=== PATIENT | male | born 1985 | race Caucasian/White ===

== ENCOUNTER 2021-02-01 11:47 | Emergency (ER) | payer OTHER ==
--- NOTE | 2021-02-01 12:32 | EDM.PDOC ---
ED HPI GENERAL MEDICAL PROBLEM - General Chief Complaint: Upper Extremity Injury/Pain Stated Complaint: LEFT THUMB INJURY Time Seen by Provider: 02/01/21 12:09 Source of Information: Reports: Patient History Limitations: Reports: No Limitations - History of Present Illness INITIAL COMMENTS - FREE TEXT/NARRATIVE: 35 yo male presents to the clinic with crush injury to the tip of his left thumb. His finger was caught between log splitter and log. nail intact but has lifted at distal cuticle. blood under nail and at distal cuticle laceration. up to date on tetanus. generally healthy. - Related Data Allergies Allergy/AdvReac Type Severity Reaction Status Date / Time Penicillins Allergy Hives Verified 02/01/21 12:05 Home Meds: Home Meds NK [No Known Home Meds] 02/01/21 [History] Past Medical History - Past Surgical History Musculoskeletal Surgical History: Reports: Arthroscopic Knee Review of Systems - Review of Systems Review Of Systems: See Below Constitutional: Denies: Chills, Fever Respiratory: Denies: Shortness of Breath, Wheezing Cardiovascular: Denies: Chest Pain ED EXAM, GENERAL - Physical Exam Exam: See Below Exam Limited By: No Limitations General Appearance: Alert, WD/WN, No Apparent Distress Respiratory/Chest: No Respiratory Distress Extremities: Other (mild edema of tip of left thumb, ROM of PIP and MP of left thumb WNL) Skin Exam: Warm, Dry, Intact, Other (left tumb 1 cm laceration at distal nail, full nail intact.) Course - Vital Signs Last Recorded V/S: Last Vital Signs Temp 36.2 C 02/01/21 12:22 Pulse 66 02/01/21 12:22 Resp 15 02/01/21 12:22 BP 113/80 02/01/21 12:22 Pulse Ox 97 02/01/21 12:22 - Orders/Labs/Meds Orders: Active Orders 24 hr Category Date Time Status Fingers Thumb Lt FA [CR] Stat Exams 02/01/21 12:22 Ordered Meds: Medications Discontinued Medications Generic Name Dose Route Start Last Admin Trade Name Freq PRN Reason Stop Dose Admin Lidocaine HCl 5 ml 02/01/21 12:37 Lidocaine 1% 5 Ml Sdv INJECT 02/01/21 12:38 ONETIME ONE - Radiology Interpretation Free Text/Narrative:: preliminary review of thumb xray shown no acute fracture or dislocation Departure - Departure Time of Disposition: 12:44 Disposition: Home, Self-Care 01 Condition: Good Clinical Impression: Crush injury to thumb Qualifiers: Encounter type: initial encounter Laterality: left Qualified Code(s): S67.02XA - Crushing injury of left thumb, initial encounter - Discharge Information *PRESCRIPTION DRUG MONITORING PROGRAM REVIEWED*: Not Applicable *COPY OF PRESCRIPTION DRUG MONITORING REPORT IN PATIENT PAUL: Not Applicable Instructions: Laceration Care, Adult, [id number] Referrals: PCP,None [Primary Care Provider] - Forms: ED Department Discharge Additional Instructions: keep dressing in place for 48 hours wash with warm soapy water and pat dry triple antibiotic to wound and keep clean until healed leave nail in place as long as possible to protect nail bed Sepsis Event Note (ED) - Evaluation Sepsis Screening Result: No Definite Risk - Focused Exam Vital Signs: Vital Signs Temp Pulse Resp BP Pulse Ox 02/01/21 12:22 36.2 C 66 15 113/80 97 02/01/21 12:19 36.2 C 66 15 113/80 97 - My Orders Last 24 Hours: My Active Orders 02/01/21 12:22 Fingers Thumb Lt FA [CR] Stat - Assessment/Plan Last 24 Hours: My Active Orders 02/01/21 12:22 Fingers Thumb Lt FA [CR] Stat
--- NOTE | 2021-02-04 09:27 | CR ---
Fingers Thumb Lt FA CLINICAL HISTORY: Trauma FINDINGS: There is no fracture or dislocation. No foreign body seen Impression: Negative
== END 2021-02-01 12:54 | disposition home or self-care (01) ==
LOC: JP.ED 11:47
DX: S67.02XA Crushing injury of left thumb, initial encounter (principal); R60.0 Localized edema; Z88.0 Allergy status to penicillin; W23.0XXA Caught, crushed, jammed, or pinched between moving objects, initial encounter
CPT/HCPCS: 73140-26-FA; 73140-FA; 99283